=== PATIENT | female | born 1945 | race Caucasian/White ===

== ENCOUNTER → 2017-05-25 | Outpatient (CLI) | payer MEDICARE, OTHER ==
[~2017-05-25] MED LIST: AMLO10 PO; ASPI325 PO; ATOR40TA PO; BENA20 PO; BENHYD1012 PO; CHOL10002 PO; CITA20 PO; CLON2 PO; CLOP75 PO; ESCI20 PO; FLUT44OIA; GABA100 PO; HYDACE5 PO; IRON PO; Invanz1 GM IV; LEVSOD75 PO; LEVSOD88 PO; NAPR500 PO; Norco 5-325 Ta1 EACH PO; OXYB5 PO; OXYC5 PO; Omeprazole20 M1 PO; RANI150 PO; TOLT2 PO
[2017-05-25 16:00] LABS: BASOPHILS ABSOLUTE AUTO 0.11 K/mm3 (0.00-0.23); BASOPHILS PERCENT AUTO 1 % (0-2); EOSINOPHILS PERCENT AUTO 5 % (0-6); Hematocrit 41.6 % (33.0-51.0); Hemoglobin 12.9 g/dL (11.5-16.0); IMMATURE GRAN ABSOLUTE AUTO 0.03 K/mm3 (0.00-0.10); IMMATURE GRAN PERCENT AUTO 0 % (0-1); LYMPHOCYTES ABSOLUTE AUTO 2.05 K/mm3 (0.84-5.20); LYMPHOCYTES PERCENT AUTO 24 % (21-46); MONOCYTES ABSOLUTE AUTO 0.39 K/mm3 (0.16-1.47); MONOCYTES PERCENT AUTO 5 % (4-13); Mean Corpuscular HGB 28.2 pg (26.0-34.0); Mean Corpuscular Volume 91 fL (80-100); Mean Platelet Volume 10.2 fL (9.1-12.4); NEUTROPHILS ABSOLUTE AUTO 5.43 K/mm3 (1.96-9.15); NEUTROPHILS PERCENT AUTO 65 % (41-73); Platelet Count 312 K/mm3 (150-400); RDW Coefficient Variation 13.9 % (11.7-14.2); RDW Standard Deviation 46.9 fL (35.1-46.3); Red Blood Cell Count 4.57 M/mm3 (3.80-5.20); White Blood Cell Count 8.41 K/mm3 (4.00-11.30)
[2017-05-25 16:18] LABS: Alanine Aminotransfer (ALT/SGP 25 U/L (12-78); Albumin, Blood 3.5 g/dL (3.4-5.0); Albumin/Globulin Ratio 0.7 (0.8-1.8); Alk Phos 124 U/L (50-136); Anion Gap 8 mmol/L (6-16); Aspartate Aminotrans (AST/SGOT 20 U/L (12-37); Bilirubin, Total 0.5 mg/dL (0.1-1.0); Blood Urea Nitrogen 11 mg/dL (8-24); Bun/Creatinine Ratio 12.2 (12.0-20.0); CO2, Blood 29 mmol/L (21-32); Calcium, Blood 8.5 mg/dL (8.5-10.1); Chloride, Blood 103 mmol/L (98-108); Free Thyroxine 0.64 ng/dL (0.70-1.60); Globulin, Blood 4.8 g/dL (2.2-4.0); Glomerular Filtration Rate >60 (60-); Glucose, Blood 119 mg/dL (70-99); Potassium, Blood 3.6 mmol/L (3.5-5.5); Sodium, Blood 140 mmol/L (136-145); Total Protein, Blood 8.3 g/dL (6.4-8.2)
[2017-05-25 16:21] LABS: Triiodothyronine, Free 2.61 pg/mL (2.18-3.98)
== END ==
LOC: OLS 14:43
PROVIDERS: Family Medicine
DX: E03.9 Hypothyroidism, unspecified (principal); F32.9 Major depressive disorder, single episode, unspecified; D50.8 Other iron deficiency anemias
CPT/HCPCS: 36415; 80053; 84439; 84443; 84481; 85025

== ENCOUNTER 2017-06-28 17:56 | Observation (INO) | payer MEDICARE, OTHER ==
[~2017-06-28] VITALS: Ht 162.6 cm; Wt 108.6 kg
[~2017-06-28 17:56] MED LIST changes: -ATOR40TA PO; -IRON PO; -RANI150 PO
[2017-06-28 20:40] LABS: BASOPHILS ABSOLUTE AUTO 0.12 K/mm3 (0.00-0.23); BASOPHILS PERCENT AUTO 2 % (0-2); EOSINOPHILS ABSOLUTE AUTO 0.47 K/mm3 (0.00-0.68); EOSINOPHILS PERCENT AUTO 6 % (0-6); Hemoglobin 13.1 g/dL (11.5-16.0); IMMATURE GRAN ABSOLUTE AUTO 0.02 K/mm3 (0.00-0.10); IMMATURE GRAN PERCENT AUTO 0 % (0-1); LYMPHOCYTES ABSOLUTE AUTO 2.07 K/mm3 (0.84-5.20); LYMPHOCYTES PERCENT AUTO 27 % (21-46); MONOCYTES ABSOLUTE AUTO 0.64 K/mm3 (0.16-1.47); MONOCYTES PERCENT AUTO 9 % (4-13); Mean Corpuscular HGB 28.5 pg (26.0-34.0); Mean Corpuscular HGB Conc 31.2 g/dL (31.5-36.5); Mean Corpuscular Volume 91 fL (80-100); Mean Platelet Volume 10.5 fL (9.1-12.4); NEUTROPHILS ABSOLUTE AUTO 4.25 K/mm3 (1.96-9.15); NEUTROPHILS PERCENT AUTO 56 % (41-73); Platelet Count 295 K/mm3 (150-400); RDW Coefficient Variation 14.9 % (11.7-14.2); White Blood Cell Count 7.57 K/mm3 (4.00-11.30)
[2017-06-28 20:57] LABS: Alanine Aminotransfer (ALT/SGP 26 U/L (12-78); Albumin, Blood 3.6 g/dL (3.4-5.0); Albumin/Globulin Ratio 0.7 (0.8-1.8); Alk Phos 124 U/L (50-136); Anion Gap 8 mmol/L (6-16); Aspartate Aminotrans (AST/SGOT 18 U/L (12-37); Bilirubin, Total 0.3 mg/dL (0.1-1.0); Blood Urea Nitrogen 12 mg/dL (8-24); Bun/Creatinine Ratio 14.9 (12.0-20.0); CO2, Blood 29 mmol/L (21-32); Calcium, Blood 8.6 mg/dL (8.5-10.1); Chloride, Blood 105 mmol/L (98-108); Creatinine, Blood 0.81 mg/dL (0.40-1.00); Glomerular Filtration Rate >60 (60-); Glucose, Blood 129 mg/dL (70-99); Potassium, Blood 3.5 mmol/L (3.5-5.5); Sodium, Blood 142 mmol/L (136-145); Total Protein, Blood 8.6 g/dL (6.4-8.2)
[2017-06-28] MEDS ORDERED: ATOR40TA PO (21:00)
[2017-06-28] MEDS ORDERED: RANI150 PO (21:05)
[2017-06-28] MEDS ORDERED: IRON PO (21:05)
[2017-06-28 23:16] LABS: Troponin I <0.015 ng/mL (0.000-0.040)
[2017-06-29 03:42] LABS: BASOPHILS PERCENT AUTO 1 % (0-2); EOSINOPHILS ABSOLUTE AUTO 0.48 K/mm3 (0.00-0.68); EOSINOPHILS PERCENT AUTO 6 % (0-6); Hematocrit 37.5 % (33.0-51.0); Hemoglobin 11.9 g/dL (11.5-16.0); IMMATURE GRAN ABSOLUTE AUTO 0.03 K/mm3 (0.00-0.10); IMMATURE GRAN PERCENT AUTO 0 % (0-1); LYMPHOCYTES ABSOLUTE AUTO 2.27 K/mm3 (0.84-5.20); LYMPHOCYTES PERCENT AUTO 29 % (21-46); MONOCYTES ABSOLUTE AUTO 0.63 K/mm3 (0.16-1.47); MONOCYTES PERCENT AUTO 8 % (4-13); Mean Corpuscular HGB Conc 31.7 g/dL (31.5-36.5); Mean Corpuscular Volume 91 fL (80-100); Mean Platelet Volume 10.1 fL (9.1-12.4); NEUTROPHILS ABSOLUTE AUTO 4.29 K/mm3 (1.96-9.15); NEUTROPHILS PERCENT AUTO 55 % (41-73); Platelet Count 259 K/mm3 (150-400); RDW Coefficient Variation 14.8 % (11.7-14.2); RDW Standard Deviation 49.6 fL (35.1-46.3); Red Blood Cell Count 4.11 M/mm3 (3.80-5.20)
[2017-06-29 03:59] LABS: Albumin, Blood 3.2 g/dL (3.4-5.0); Anion Gap 6 mmol/L (6-16); Blood Urea Nitrogen 9 mg/dL (8-24); CO2, Blood 30 mmol/L (21-32); Calcium, Blood 8.3 mg/dL (8.5-10.1); Chloride, Blood 105 mmol/L (98-108); Creatinine, Blood 0.82 mg/dL (0.40-1.00); Glomerular Filtration Rate >60 (60-); Glucose, Blood 145 mg/dL (70-99); Phosphorus, Blood 3.7 mg/dL (2.5-4.9); Potassium, Blood 3.4 mmol/L (3.5-5.5); Sodium, Blood 141 mmol/L (136-145)
[2017-06-29 04:02] LABS: CHOL/HDL RATIO 2.3; Cholesterol 94 mg/dL (50-200); HDL Cholesterol 41 mg/dL (>39); LDL/HDL RATIO 0.5; Low Density Lipoprotein Chol 21 mg/dL (0-110); Triglycerides 159 mg/dL (30-160); Troponin I <0.015 ng/mL (0.000-0.040); Very Low Density Lipoprot Chol 31 mg/dL (6-32)
== END 2017-06-29 15:37 | disposition home or self-care (01) ==
LOC: ER 17:56 → MEDS 17:57 → ENPENDDIS 06-29 13:00 → MEDS 06-29 15:37
PROVIDERS: Emergency Medicine; Family Medicine
DX: R55 Syncope and collapse (principal); I73.9 Peripheral vascular disease, unspecified; I65.21 Occlusion and stenosis of right carotid artery; E78.5 Hyperlipidemia, unspecified; K21.9 Gastro-esophageal reflux disease without esophagitis; I10 Essential (primary) hypertension; G47.30 Sleep apnea, unspecified; F17.210 Nicotine dependence, cigarettes, uncomplicated; Z96.643 Presence of artificial hip joint, bilateral; Z86.73 Personal history of transient ischemic attack (TIA), and cerebral infarction without residual deficits; Z98.890 Other specified postprocedural states; Z88.0 Allergy status to penicillin; Z91.040 Latex allergy status; Z79.82 Long term (current) use of aspirin; Z79.899 Other long term (current) drug therapy
CPT/HCPCS: 36415; 70450; 80053; 80061; 80069; 84484; 85025; 93005; 93010; 93306; 93880; 94660; 94762; 99285; G0378

== ENCOUNTER 2018-05-25 06:48 | Day surgery (SDC) | payer MEDICARE, OTHER ==
[~2018-05-25] VITALS: Ht 160 cm; Wt 111.2 kg
[~2018-05-25 06:48] MED LIST changes: +ATOR40TA PO; +IRON PO; +RANI150 PO
[2018-05-25] MEDS ORDERED: LEVSOD50 (07:16)
[2018-05-25] MEDS ORDERED: GRALISE1 EACH (07:16)
== END 2018-05-25 10:01 | disposition home or self-care (01) ==
LOC: ORSCSDS 06:48
PROVIDERS: Internal Medicine Gastroenterology
PROC: 0DBE8ZX Excision of Large Intestine, Via Natural or Artificial Opening Endoscopic, Diagnostic (ICD-10-PCS; principal; 2018-05-25 08:00)
DX: K62.5 Hemorrhage of anus and rectum (principal); R19.7 Diarrhea, unspecified; K63.89 Other specified diseases of intestine; K57.30 Diverticulosis of large intestine without perforation or abscess without bleeding; K64.8 Other hemorrhoids; I12.9 Hypertensive chronic kidney disease with stage 1 through stage 4 chronic kidney disease, or unspecified chronic kidney disease; E11.22 Type 2 diabetes mellitus with diabetic chronic kidney disease; N18.9 Chronic kidney disease, unspecified; Z79.899 Other long term (current) drug therapy; G47.33 Obstructive sleep apnea (adult) (pediatric); F17.210 Nicotine dependence, cigarettes, uncomplicated; E66.01 Morbid (severe) obesity due to excess calories; Z68.41 Body mass index [BMI] 40.0-44.9, adult
CPT/HCPCS: 88305; J0330; J1980; J2405; J7120

== ENCOUNTER 2018-07-10 14:30 | Inpatient (IN) | payer MEDICARE, OTHER ==
[~2018-07-10] VITALS: Ht 162.6 cm; Wt 109.1 kg
[~2018-07-10 14:30] MED LIST changes: +FERROUS SULFATE PO; +GRALISE1 EACH; +LEVSOD50 PO; +OMEPRAZOLE MAGN20 MG PO; +POTASSIUM GLUC500 MG PO; -RANI150 PO; +TYLENOL PM PO; +Zantac PO
[2018-07-11] MEDS ORDERED: GABA100 PO ×2 (06:29→06:30)
--- NOTE | 2018-07-11 07:38 | NUR ---
INTO SDS VIA W/C. History, Chart, Medications and Allergies reviewed before start of procedure.Patient confirms NPO status and agrees with scheduled surgery. Patient states colon prep results clear.
--- NOTE | 2018-07-11 08:51 | NUR ---
07/11/18 0851 [place] THOMPSON CATH INSERTED PER ANNABEL JOHSNON.
--- NOTE | 2018-07-11 15:48 | NUR ---
DRESSING TO ABDOMEN AND 4 SITES OF STERI STRIPS REMAINED THE SAME.
--- NOTE | 2018-07-11 18:32 | NUR ---
SUMMARY PT HAS BEEN SLEEPING INTERMITTENT SINCE ARRIVAL TO THE UNIT. PT WILL RESPOND TO STIMULATION, DENIES PAIN, PROVENA WOUND VAC IN PLACE, STERI STRIPS COVERED WITH TEGADERM DRSG'S. VSS. PT IS ON 3 L O2 VIA NC. PT WEARS A CPAP AT HOME, HER HOME CPAP IS AT THE BEDSIDE. RT HAS BEEN NOTIFIED. THOMPSON CATH IN PLACE, PATENT, OFF FLOOR, DRAINING CLEAR JULIEN URINE. PT'S GRANDDAUGHTER IS AT THE BEDSIDE AND WILL BE STAYING THE NIGHT. LR INFUSING @ 75 ML/HR PER EMAR. WMCT & REPORT TO TOMASZ JOHNSON.
[2018-07-12 06:03] LABS: BASOPHILS ABSOLUTE AUTO 0.01 K/mm3 (0.00-0.23); BASOPHILS PERCENT AUTO 0 % (0-2); EOSINOPHILS PERCENT AUTO 0 % (0-6); Hematocrit 33.2 % (33.0-51.0); Hemoglobin 10.4 g/dL (11.5-16.0); IMMATURE GRAN ABSOLUTE AUTO 0.05 K/mm3 (0.00-0.10); IMMATURE GRAN PERCENT AUTO 0 % (0-1); LYMPHOCYTES PERCENT AUTO 9 % (21-46); MONOCYTES PERCENT AUTO 7 % (4-13); Mean Corpuscular HGB 29.5 pg (26.0-34.0); Mean Corpuscular HGB Conc 31.3 g/dL (31.5-36.5); Mean Platelet Volume 10.1 fL (9.1-12.4); NEUTROPHILS PERCENT AUTO 84 % (41-73); Platelet Count 278 K/mm3 (150-400); RDW Coefficient Variation 14.3 % (11.7-14.2); RDW Standard Deviation 49.2 fL (35.1-46.3); Red Blood Cell Count 3.52 M/mm3 (3.80-5.20); White Blood Cell Count 12.46 K/mm3 (4.00-11.30)
[2018-07-12 06:04] LABS: Mean Corpuscular Volume 94 fL (80-100)
[2018-07-12 06:16] LABS: Bun/Creatinine Ratio 13.7 (12.0-20.0); Calcium, Blood 8.2 mg/dL (8.5-10.1); Creatinine, Blood 1.02 mg/dL (0.40-1.00); Potassium, Blood 3.9 mmol/L (3.5-5.5)
--- NOTE | 2018-07-12 07:41 | NUR ---
Patient gave this student verbal consent to treat on 07/11/2018.
--- NOTE | 2018-07-12 16:57 | NUR ---
SHIFT SUMMARY NO ACUTE CHANGES THIS SHIFT. VSS. PT MEDICATED WITH 2 PAIN PILLS PRN. PROVENA WOUND VAC TO MIDLINE ABD REMAINS CDI. LAP SITES TO ABD REMAIN CDI. PT MERLY CLEAR LIQ DIET. THOMPSON IN PLACE UNTIL TOMORROW MORNING PER DR. DAVE REQUEST. PT UP AMBULATING HALLWAY WITH 1 MINIMAL SBA. IVF INFUSING. PT USES CALL LIGHT APPROPRIATELY. FAMILY MEMBERS IN ROOM FOR SUPPORT.
[2018-07-13 05:05] LABS: BASOPHILS ABSOLUTE AUTO 0.07 K/mm3 (0.00-0.23); BASOPHILS PERCENT AUTO 1 % (0-2); EOSINOPHILS PERCENT AUTO 1 % (0-6); Hematocrit 31.3 % (33.0-51.0); Hemoglobin 9.6 g/dL (11.5-16.0); IMMATURE GRAN ABSOLUTE AUTO 0.05 K/mm3 (0.00-0.10); IMMATURE GRAN PERCENT AUTO 0 % (0-1); LYMPHOCYTES ABSOLUTE AUTO 2.47 K/mm3 (0.84-5.20); LYMPHOCYTES PERCENT AUTO 21 % (21-46); MONOCYTES ABSOLUTE AUTO 0.99 K/mm3 (0.16-1.47); MONOCYTES PERCENT AUTO 8 % (4-13); Mean Corpuscular HGB 30.2 pg (26.0-34.0); Mean Corpuscular HGB Conc 30.7 g/dL (31.5-36.5); Mean Platelet Volume 10.1 fL (9.1-12.4); NEUTROPHILS ABSOLUTE AUTO 8.29 K/mm3 (1.96-9.15); NEUTROPHILS PERCENT AUTO 69 % (41-73); Platelet Count 239 K/mm3 (150-400); RDW Coefficient Variation 14.2 % (11.7-14.2); RDW Standard Deviation 51.7 fL (35.1-46.3); Red Blood Cell Count 3.18 M/mm3 (3.80-5.20); White Blood Cell Count 11.97 K/mm3 (4.00-11.30)
[2018-07-13 05:13] LABS: Mean Corpuscular Volume 98 fL (80-100)
[2018-07-13 05:30] LABS: Anion Gap 6 mmol/L (6-16); Blood Urea Nitrogen 15 mg/dL (8-24); CO2, Blood 29 mmol/L (21-32); Chloride, Blood 105 mmol/L (98-108); Creatinine, Blood 0.94 mg/dL (0.40-1.00); Glomerular Filtration Rate >60 (60-); Glucose, Blood 99 mg/dL (70-99); Potassium, Blood 3.8 mmol/L (3.5-5.5); Sodium, Blood 140 mmol/L (136-145)
--- NOTE | 2018-07-13 06:06 | NUR ---
POD 2 S/P SIGMOID RESECTION. PT VSS T/O NIGHT; PT NEEDIGN O2NC TO KEEP SATS >90%. DRESSINGS CDI. PAIN MGD PER EMAR W/REP RELIEF. PT MELRY CLEAR LIQ, BT PRESENT, NO FLATUS YET. PT SLEPT IN CHAIR T/O NIGHT, CPAP ON. I/S USE AND TCDB REINFORCED W/ROUNDING. PLAN TO D/C DONNA CATH THIS AM. PT USING CALL LIGHT FOR ASSISTANCE, WILL CONT TO MONITOR UNTIL REP GIVEN TO ONCOMING RN.
--- NOTE | 2018-07-13 08:00 | NUR ---
DR DAVE BY TO SEE PT EARLIER PT STILL HAS NOT PASSED FLATUS NO NAUSEA FEELS GAS OCC PAIN 5-10/09 NO VOID YET INSTRUCTED PT TO CALL FOR ASSIST WHEN SHE FEELS THE URGE TO GO IF UNABLE TO GO DISCUSSED BLADDER SCAN AND IN/OUT CATH IF PT PASSES FLATUS WILL NOTIFY DR DAVE
--- NOTE | 2018-07-13 12:05 | NUR ---
PT SITTING UP IN CHAIR EATING LUNCH NO FLATUS FAMILY AT BEDSIDE PAIN MEDS GIVEN
--- NOTE | 2018-07-13 16:04 | NUR ---
pt reported passing gas earlier message left with dr tomlinson office re adv pt diet
[2018-07-14 05:03] LABS: BASOPHILS ABSOLUTE AUTO 0.11 K/mm3 (0.00-0.23); BASOPHILS PERCENT AUTO 1 % (0-2); EOSINOPHILS ABSOLUTE AUTO 0.38 K/mm3 (0.00-0.68); EOSINOPHILS PERCENT AUTO 4 % (0-6); Hematocrit 30.8 % (33.0-51.0); Hemoglobin 9.4 g/dL (11.5-16.0); IMMATURE GRAN ABSOLUTE AUTO 0.06 K/mm3 (0.00-0.10); IMMATURE GRAN PERCENT AUTO 1 % (0-1); LYMPHOCYTES ABSOLUTE AUTO 2.23 K/mm3 (0.84-5.20); LYMPHOCYTES PERCENT AUTO 21 % (21-46); MONOCYTES ABSOLUTE AUTO 0.91 K/mm3 (0.16-1.47); MONOCYTES PERCENT AUTO 9 % (4-13); Mean Corpuscular HGB 29.7 pg (26.0-34.0); Mean Corpuscular HGB Conc 30.5 g/dL (31.5-36.5); Mean Corpuscular Volume 97 fL (80-100); Mean Platelet Volume 10.3 fL (9.1-12.4); NEUTROPHILS ABSOLUTE AUTO 6.88 K/mm3 (1.96-9.15); NEUTROPHILS PERCENT AUTO 65 % (41-73); Platelet Count 224 K/mm3 (150-400); RDW Coefficient Variation 14.2 % (11.7-14.2); RDW Standard Deviation 50.4 fL (35.1-46.3); Red Blood Cell Count 3.17 M/mm3 (3.80-5.20); White Blood Cell Count 10.57 K/mm3 (4.00-11.30)
[2018-07-14 05:27] LABS: Anion Gap 8 mmol/L (6-16); Blood Urea Nitrogen 15 mg/dL (8-24); Bun/Creatinine Ratio 15.7 (12.0-20.0); CO2, Blood 27 mmol/L (21-32); Calcium, Blood 8.2 mg/dL (8.5-10.1); Chloride, Blood 105 mmol/L (98-108); Creatinine, Blood 0.96 mg/dL (0.40-1.00); Glomerular Filtration Rate >60 (60-); Potassium, Blood 3.6 mmol/L (3.5-5.5); Sodium, Blood 140 mmol/L (136-145)
[2018-07-14 05:36] LABS: Glucose, Blood 112 mg/dL (70-99)
--- NOTE | 2018-07-14 05:55 | NUR ---
POD 3 S/P RESECTION. PT VSS T/O NIGHT. PT DID REQ 4-5L NC TO KEEP SATS >90%. PT USING NC WHILE AWAKE NAD BIPAP WHILE ASLEEP. DRESSINGS CDI. PAIN GMGD W/PO PAIN MEDS W/REP RELIEF. PT MERLY REG PO, IS PASSING FLATUS, NO BM YET. PT VOIDING URINE W/O DIFFICULTY. PO FLUIDS ENC. PT AMB W/SBA. TCDB ADN I/S USE REINFORCED. PT USING CALL LIGHT FOR ASSISTANCE, WILL CONT TO MONITOR UNTIL REP GIVEN TO ONCOMING RN.
--- NOTE | 2018-07-14 16:56 | NUR ---
SHIFT SUMMARY NO ACUTE CHANGES THIS SHIFT. VSS. PT MEDICATED FOR PAIN X1 WITH 2 NORCO. PROVENA WOUND VAC IN PLACE. X3 LAP SITES WITH STERI STRIPS ARE CDI. PT UP WITH SBA TO RESTROOM. VOIDING. IV SL. PASSING GAS. MERLY REG PO INTAKE. AMBULATING HALLWAY. PLAN IS TO DC TOMORROW.
[2018-07-15 04:32] LABS: BASOPHILS ABSOLUTE AUTO 0.09 K/mm3 (0.00-0.23); BASOPHILS PERCENT AUTO 1 % (0-2); EOSINOPHILS ABSOLUTE AUTO 0.44 K/mm3 (0.00-0.68); EOSINOPHILS PERCENT AUTO 5 % (0-6); Hematocrit 31.8 % (33.0-51.0); Hemoglobin 9.7 g/dL (11.5-16.0); IMMATURE GRAN ABSOLUTE AUTO 0.06 K/mm3 (0.00-0.10); IMMATURE GRAN PERCENT AUTO 1 % (0-1); LYMPHOCYTES ABSOLUTE AUTO 1.96 K/mm3 (0.84-5.20); LYMPHOCYTES PERCENT AUTO 22 % (21-46); MONOCYTES ABSOLUTE AUTO 0.69 K/mm3 (0.16-1.47); MONOCYTES PERCENT AUTO 8 % (4-13); Mean Corpuscular HGB 29.5 pg (26.0-34.0); Mean Corpuscular HGB Conc 30.5 g/dL (31.5-36.5); Mean Corpuscular Volume 97 fL (80-100); Mean Platelet Volume 10.4 fL (9.1-12.4); NEUTROPHILS ABSOLUTE AUTO 5.62 K/mm3 (1.96-9.15); NEUTROPHILS PERCENT AUTO 63 % (41-73); Platelet Count 263 K/mm3 (150-400); RDW Coefficient Variation 13.8 % (11.7-14.2); RDW Standard Deviation 49.3 fL (35.1-46.3); Red Blood Cell Count 3.29 M/mm3 (3.80-5.20); White Blood Cell Count 8.86 K/mm3 (4.00-11.30)
--- NOTE | 2018-07-15 04:53 | NUR ---
SUMMARY: PT IS POD4 CADE-COLECTOMY. NO ACUTE CHANGE. PT A/O, WHILE AWAKE DESATING TO 88%, I.S. ENCOURAGED. 1L NC APPLIED TO KEEP OVER 90% SPO2. OTHERWISE VSS. PT WORE CPAP FOR SLEEP. SURGICAL SITES WNL, PT HAS DENIED NEED FOR PAIN MEDS. TOLERATING REGULAR DIET, POSITIVE FOR FLATUS, NO REPORT OF BM. PT UP WITH MINIMAL ASSIST. NO SAFETY CONCERNS AT THIS TIME.
[2018-07-15] MEDS ORDERED: HYDR1TAB94 PO (12:06)
--- NOTE | 2018-07-15 15:09 | NUR ---
DISCHARGE: DC TO HOME AT THIS TIME WITH SPOUSE. IVS DC'D WNL. SCRIPT GIVEN. VERBAL UNDERSTANDING OF INSTRUCTIONS, FOLLOW UP, PROBLEMS TO REPORT AND MEDICATIONS. PT LEFT VIA WHEELCHAIR TO CAR WITH BELONGINGS.
== END 2018-07-15 13:10 | disposition home or self-care (01) | DRG 330 ==
LOC: SURS 07-11 05:55 → PRE IP 07-11 07:30 → SURS 07-11 16:05
PROVIDERS: ADMIT Surgery
PROC: 0DTN0ZZ Resection of Sigmoid Colon, Open Approach (ICD-10-PCS; principal; 2018-07-11 07:30)
PROC: 0DTJ0ZZ Resection of Appendix, Open Approach (ICD-10-PCS; 2018-07-11 07:30)
DX: D12.5 Benign neoplasm of sigmoid colon (principal); K57.32 Diverticulitis of large intestine without perforation or abscess without bleeding; Z68.41 Body mass index [BMI] 40.0-44.9, adult; F17.210 Nicotine dependence, cigarettes, uncomplicated; I10 Essential (primary) hypertension; E03.9 Hypothyroidism, unspecified; G47.30 Sleep apnea, unspecified; E66.9 Obesity, unspecified
CPT/HCPCS: 36415; 80048; 85025; 86850; 86900; 86901; 88304; 88307; 94762; J1100; J1650; J2185; J2250; J2405; J2710; J3010; J7120

== ENCOUNTER → 2019-07-30 | Outpatient (CLI) | payer MEDICARE, OTHER ==
[~2019-07-30] MED LIST changes: +HYDR1TAB94 PO
== END | disposition home or self-care (01) ==
LOC: LAB EV 14:30 → LAB SHORT 14:30
DX: L03.211 Cellulitis of face (principal)
CPT/HCPCS: 87070; 87205

== ENCOUNTER → 2020-04-10 | Outpatient (CLI) | payer MEDICARE, OTHER ==
[2020-04-11 16:11] LABS: ADENOVIRUS F 40/41 Not Detected (Not Detected); ASTROVIRUS Not Detected (Not Detected); C DIFFICILE TOXIN A/B Not Detected (Not Detected); CAMPYLOBACTER Not Detected (Not Detected); CRYPTOSPORIDIUM Not Detected (Not Detected); CYCLOSPORA CAYETANENSIS Not Detected (Not Detected); ENTAMOEBA HISTOLYTICA Not Detected (Not Detected); ENTEROAGGREGATIVE E COLI Not Detected (Not Detected); ENTEROPATHOGENIC E COLI Not Detected (Not Detected); ENTEROTOXIGENIC E COLI Not Detected (Not Detected); GIARDIA LAMBLIA Not Detected (Not Detected); NOROVIRUS GI/GII Not Detected (Not Detected); PLESIOMONAS SHIGELLOIDES Not Detected (Not Detected); ROTAVIRUS A Not Detected (Not Detected); SALMONELLA Not Detected (Not Detected); SAPOVIRUS Not Detected (Not Detected); SHIGA-TOXIN-PRODUCING E COLI Not Detected (Not Detected); SHIGELLA/ENTEROINVASIVE E COLI Not Detected (Not Detected); VIBRIO Not Detected (Not Detected); VIBRIO CHOLERAE Not Detected (Not Detected); YERSINIA ENTEROCOLITICA Not Detected (Not Detected)
== END | disposition home or self-care (01) ==
LOC: LAB SHORT 10:30 → LAB 10:30
PROVIDERS: Nurse Practitioner Family
DX: R19.7 Diarrhea, unspecified (principal); R11.10 Vomiting, unspecified
CPT/HCPCS: 0097U

== ENCOUNTER → 2020-07-25 | Outpatient (CLI) | payer MEDICARE, OTHER ==
[~2020-07-25] MED LIST changes: -ASPI325 PO; +Aspir 8181 MG PO; +CEPH500 PO; +CIPR500 PO; +CITALOPRAM HBR40 M1 PO; +EUTHYROX125 MCG PO; +FURO20 PO; +GUAI600T33 PO; +HYDCHL12.5 PO; +LEVSOD112 PO; -LEVSOD50 PO; +LOSARTAN POTAS100 MG PO; +NICO2 PO; +Oxybutynin Chlo10 MG PO; +POTA10T PO
[2020-07-25 19:07] LABS: Appearance, Urine Cloudy (Clear); Bilirubin, Urine Neg (Neg); Blood, Urine 5+ (Neg); Color, Urine Yellow (P-Yellow); Glucose Qualitative, Urine Neg (Neg); Ketones, Urine Neg (Neg); Leukocyte Esterase, Urine 3+ (Neg); Nitrite, Urine Pos (Neg); Protein, Urine 3+ (Neg); Specific Gravity, Urine 1.015 (1.003-1.022); Urobilinogen, Urine NORM (Normal)
[2020-07-25 19:14] LABS: White Blood Cells, Urine TNTC /hpf (0-5)
[2020-07-25 19:15] LABS: Bacteria Many /hpf; Red Blood Cells, Urine 25-50 /hpf (0-2); Squamous Epithelial Cells Few /hpf (Few); Transitional Epithelial Cells Rare /hpf (0-Rare)
== END | disposition home or self-care (01) ==
LOC: LAB SHORT 16:00 → LAB 16:00
PROVIDERS: Nurse Practitioner Family
DX: R30.0 Dysuria (principal)
CPT/HCPCS: 81001; 87077; 87086; 87186

== ENCOUNTER → 2021-08-19 | Outpatient (CLI) | payer MEDICARE, OTHER ==
[2021-08-24 14:25] LABS: C DIFFICILE DNA NEGATIVE (Negative)
== END | disposition home or self-care (01) ==
LOC: LAB SHORT 13:00
PROVIDERS: Nurse Practitioner Family
DX: R19.7 Diarrhea, unspecified (principal)
CPT/HCPCS: 87493

== ENCOUNTER 2022-07-16 12:41 | Day surgery (SDC) | payer MEDICARE, OTHER ==
[~2022-07-16] VITALS: Ht 162.6 cm; Wt 108.4 kg
[2022-07-16] MEDS ORDERED: IRBE75 (13:35)
--- NOTE | 2022-07-16 15:23 | NUR ---
07/16/22 1523 ALONA HALE EXAM ABORTED D/T POOR PREP.END NOTE ORSC.RDS
== END 2022-07-16 15:32 | disposition home or self-care (01) ==
LOC: ORSCSDS 12:41
PROVIDERS: Internal Medicine Gastroenterology
PROC: 0DJD8ZZ Inspection of Lower Intestinal Tract, Via Natural or Artificial Opening Endoscopic (ICD-10-PCS; principal; 2022-07-16 14:00)
DX: R19.5 Other fecal abnormalities (principal); Z86.010 Personal history of colon polyps; I10 Essential (primary) hypertension; Z87.891 Personal history of nicotine dependence; Z79.899 Other long term (current) drug therapy; E11.9 Type 2 diabetes mellitus without complications; Z86.73 Personal history of transient ischemic attack (TIA), and cerebral infarction without residual deficits; E66.01 Morbid (severe) obesity due to excess calories; Z68.41 Body mass index [BMI] 40.0-44.9, adult
CPT/HCPCS: 82947; J0330; J0461; J2001; J2405; J2704; J7120; Q9968

== ENCOUNTER 2022-09-09 15:31 | Emergency (ER) | payer MEDICARE, OTHER ==
[~2022-09-09] VITALS: Ht 162.6 cm; Wt 104.3 kg
[~2022-09-09 15:31] MED LIST changes: +IRBE75
[2022-09-09 16:32] LABS: BASOPHILS ABSOLUTE AUTO 0.09 K/mm3 (0.00-0.23); BASOPHILS PERCENT AUTO 1 % (0-2); EOSINOPHILS ABSOLUTE AUTO 0.38 K/mm3 (0.00-0.68); EOSINOPHILS PERCENT AUTO 4 % (0-6); Hematocrit 40.8 % (33.0-51.0); Hemoglobin 13.6 g/dL (11.5-16.0); IMMATURE GRAN ABSOLUTE AUTO 0.03 K/mm3 (0.00-0.10); IMMATURE GRAN PERCENT AUTO 0 % (0-1); LYMPHOCYTES ABSOLUTE AUTO 1.71 K/mm3 (0.84-5.20); LYMPHOCYTES PERCENT AUTO 20 % (21-46); MONOCYTES ABSOLUTE AUTO 0.57 K/mm3 (0.16-1.47); MONOCYTES PERCENT AUTO 7 % (4-13); Mean Corpuscular HGB 30.5 pg (26.0-34.0); Mean Corpuscular HGB Conc 33.3 g/dL (31.5-36.5); Mean Corpuscular Volume 92 fL (80-100); Mean Platelet Volume 10.3 fL (9.1-12.4); NEUTROPHILS PERCENT AUTO 68 % (41-73); Platelet Count 276 K/mm3 (150-400); RDW Standard Deviation 47.2 fL (35.1-46.3); Red Blood Cell Count 4.46 M/mm3 (3.80-5.20); White Blood Cell Count 8.58 K/mm3 (4.00-11.30)
[2022-09-09 17:08] LABS: Albumin, Blood 3.8 g/dL (3.4-5.0); Albumin/Globulin Ratio 0.8 (0.8-1.8); Bilirubin, Total 0.8 mg/dL (0.1-1.0); Bun/Creatinine Ratio 23.6 (12.0-20.0); Calcium, Blood 9.6 mg/dL (8.5-10.1); Creatinine, Blood 1.44 mg/dL (0.40-1.00); Globulin, Blood 4.5 g/dL (2.2-4.0); Potassium, Blood 3.1 mmol/L (3.5-5.5); Total Protein, Blood 8.3 g/dL (6.4-8.2)
[2022-09-09] MEDS ORDERED: ASPI325 PO (19:21)
[2022-09-09] MEDS ORDERED: HYDCHL12.5 PO (19:22)
[2022-09-09 21:00] VITALS: BP 145/61
[2022-09-09] MEDS ORDERED: LOPE2C PO (21:06)
[2022-09-09] MEDS ORDERED: POTA10T PO (21:06)
[2022-09-09] MEDS ORDERED: PROBIOTIC1 EA13 PO (21:06)
== END 2022-09-09 21:37 | disposition home or self-care (01) ==
LOC: ER 15:31
PROVIDERS: Physician Assistant
DX: R19.7 Diarrhea, unspecified (principal); E87.6 Hypokalemia; Z88.0 Allergy status to penicillin; Z91.040 Latex allergy status; Z79.899 Other long term (current) drug therapy; Z79.82 Long term (current) use of aspirin; G47.30 Sleep apnea, unspecified; I10 Essential (primary) hypertension; F17.200 Nicotine dependence, unspecified, uncomplicated
CPT/HCPCS: 80053; 83690; 85025; 96360; 99284-25; A9270; J7030

== ENCOUNTER → 2022-11-08 | Outpatient (CLI) | payer MEDICARE, OTHER ==
[~2022-11-08] MED LIST changes: +ASPI325 PO; +LOPE2C PO; +PROBIOTIC1 EA13 PO
[2022-11-08 16:20] LABS: BASOPHILS ABSOLUTE AUTO 0.08 K/mm3 (0.00-0.23); BASOPHILS PERCENT AUTO 1 % (0-2); EOSINOPHILS ABSOLUTE AUTO 0.55 K/mm3 (0.00-0.68); EOSINOPHILS PERCENT AUTO 8 % (0-6); Hematocrit 37.8 % (33.0-51.0); Hemoglobin 12.8 g/dL (11.5-16.0); IMMATURE GRAN ABSOLUTE AUTO 0.04 K/mm3 (0.00-0.10); IMMATURE GRAN PERCENT AUTO 1 % (0-1); LYMPHOCYTES ABSOLUTE AUTO 1.57 K/mm3 (0.84-5.20); LYMPHOCYTES PERCENT AUTO 22 % (21-46); MONOCYTES ABSOLUTE AUTO 0.45 K/mm3 (0.16-1.47); MONOCYTES PERCENT AUTO 6 % (4-13); Mean Corpuscular HGB 31.2 pg (26.0-34.0); Mean Corpuscular HGB Conc 33.9 g/dL (31.5-36.5); Mean Corpuscular Volume 92 fL (80-100); Mean Platelet Volume 9.6 fL (9.1-12.4); NEUTROPHILS ABSOLUTE AUTO 4.34 K/mm3 (1.96-9.15); NEUTROPHILS PERCENT AUTO 62 % (41-73); Platelet Count 292 K/mm3 (150-400); RDW Coefficient Variation 13.6 % (11.7-14.2); White Blood Cell Count 7.03 K/mm3 (4.00-11.30)
[2022-11-08 17:44] LABS: Albumin, Blood 3.8 g/dL (3.4-5.0); Albumin/Globulin Ratio 0.9 (0.8-1.8); Bilirubin, Direct 0.1 mg/dL (0.0-0.3); Bilirubin, Indirect 0.5 mg/dL (0.1-0.7); Bilirubin, Total 0.6 mg/dL (0.1-1.0); Bun/Creatinine Ratio 17.2 (12.0-20.0); Calcium, Blood 9.2 mg/dL (8.5-10.1); Creatinine, Blood 1.28 mg/dL (0.40-1.00); Globulin, Blood 4.2 g/dL (2.2-4.0); Potassium, Blood 3.3 mmol/L (3.5-5.5)
== END ==
LOC: LAB SHORT 16:15 → LAB 16:15
PROVIDERS: Family Medicine
DX: R07.89 Other chest pain (principal); R10.11 Right upper quadrant pain
CPT/HCPCS: 80053; 82248; 83690; 84484; 85025; 85379

== ENCOUNTER 2022-12-20 12:00 | Emergency (ER) | payer MEDICARE, OTHER ==
[~2022-12-20] VITALS: Ht 172.7 cm; Wt 129.3 kg
[~2022-12-20 12:00] MED LIST changes: +OMEP20ER PO; -OMEPRAZOLE MAGN20 MG PO
[2022-12-20 12:42] LABS: BASOPHILS ABSOLUTE AUTO 0.08 K/mm3 (0.00-0.23); BASOPHILS PERCENT AUTO 1 % (0-2); EOSINOPHILS ABSOLUTE AUTO 0.97 K/mm3 (0.00-0.68); EOSINOPHILS PERCENT AUTO 12 % (0-6); Hematocrit 38.6 % (33.0-51.0); IMMATURE GRAN ABSOLUTE AUTO 0.03 K/mm3 (0.00-0.10); IMMATURE GRAN PERCENT AUTO 0 % (0-1); LYMPHOCYTES ABSOLUTE AUTO 1.91 K/mm3 (0.84-5.20); LYMPHOCYTES PERCENT AUTO 23 % (21-46); MONOCYTES PERCENT AUTO 6 % (4-13); Mean Corpuscular HGB 30.6 pg (26.0-34.0); Mean Corpuscular HGB Conc 33.7 g/dL (31.5-36.5); Mean Corpuscular Volume 91 fL (80-100); Mean Platelet Volume 10.3 fL (9.1-12.4); NEUTROPHILS ABSOLUTE AUTO 4.75 K/mm3 (1.96-9.15); NEUTROPHILS PERCENT AUTO 58 % (41-73); Platelet Count 292 K/mm3 (150-400); RDW Coefficient Variation 13.2 % (11.7-14.2); RDW Standard Deviation 44.5 fL (35.1-46.3); Red Blood Cell Count 4.25 M/mm3 (3.80-5.20); White Blood Cell Count 8.24 K/mm3 (4.00-11.30)
[2022-12-20 12:53] LABS: Albumin, Blood 3.6 g/dL (3.4-5.0); Albumin/Globulin Ratio 0.9 (0.8-1.8); Bilirubin, Total 0.5 mg/dL (0.1-1.0); Bun/Creatinine Ratio 18.2 (12.0-20.0); Calcium, Blood 8.9 mg/dL (8.5-10.1); Creatinine, Blood 1.48 mg/dL (0.40-1.00); Globulin, Blood 4.1 g/dL (2.2-4.0); Potassium, Blood 3.5 mmol/L (3.5-5.5); Total Protein, Blood 7.7 g/dL (6.4-8.2)
[2022-12-20 13:03] LABS: Cholesterol 130 mg/dL (50-200); Triglycerides 192 mg/dL (30-160)
[2022-12-20] MEDS ORDERED: CLOP75 PO (14:21)
[2022-12-20 14:38] VITALS: BP 131/67
== END 2022-12-20 14:52 | disposition home or self-care (01) ==
LOC: ER 12:00
PROVIDERS: Emergency Medicine
DX: G45.9 Transient cerebral ischemic attack, unspecified (principal); R29.810 Facial weakness; E11.22 Type 2 diabetes mellitus with diabetic chronic kidney disease; I13.0 Hypertensive heart and chronic kidney disease with heart failure and stage 1 through stage 4 chronic kidney disease, or unspecified chronic kidney disease; N18.1 Chronic kidney disease, stage 1; G47.30 Sleep apnea, unspecified; I50.32 Chronic diastolic (congestive) heart failure; E78.5 Hyperlipidemia, unspecified; E03.9 Hypothyroidism, unspecified
CPT/HCPCS: 70450; 80053; 82465; 84478; 85025; 93005; 93010; 93880; 99285-25; A9270

== ENCOUNTER 2022-12-26 18:04 | Inpatient (IN) | payer MEDICARE, OTHER ==
[~2022-12-26] VITALS: Ht 162.6 cm; Wt 104.1 kg
[2022-12-26 18:53] LABS: BASOPHILS ABSOLUTE AUTO 0.04 K/mm3 (0.00-0.23); BASOPHILS PERCENT AUTO 0 % (0-2); EOSINOPHILS ABSOLUTE AUTO 1.57 K/mm3 (0.00-0.68); EOSINOPHILS PERCENT AUTO 11 % (0-6); Hematocrit 33.1 % (33.0-51.0); Hemoglobin 10.6 g/dL (11.5-16.0); IMMATURE GRAN ABSOLUTE AUTO 0.06 K/mm3 (0.00-0.10); IMMATURE GRAN PERCENT AUTO 0 % (0-1); LYMPHOCYTES ABSOLUTE AUTO 2.05 K/mm3 (0.84-5.20); LYMPHOCYTES PERCENT AUTO 15 % (21-46); MONOCYTES ABSOLUTE AUTO 0.99 K/mm3 (0.16-1.47); MONOCYTES PERCENT AUTO 7 % (4-13); Mean Corpuscular HGB 29.9 pg (26.0-34.0); Mean Corpuscular Volume 93 fL (80-100); Mean Platelet Volume 10.4 fL (9.1-12.4); NEUTROPHILS ABSOLUTE AUTO 9.33 K/mm3 (1.96-9.15); NEUTROPHILS PERCENT AUTO 66 % (41-73); Platelet Count 267 K/mm3 (150-400); RDW Coefficient Variation 13.3 % (11.7-14.2); Red Blood Cell Count 3.55 M/mm3 (3.80-5.20); White Blood Cell Count 14.04 K/mm3 (4.00-11.30)
[2022-12-26 19:05] LABS: Calcium, Ionized (POC) 1.11 mmol/L (1.10-1.46); Chloride (POC) 104 mmol/L (98-108); Creatinine (POC) 1.1 mg/dL (0.6-1.0); Glucose (ISTAT POC) 120 mg/dL (70-99); Hemoglobin (POC) 10.5 g/dL (12.0-16.0); Potassium (POC) 3.7 mmol/L (3.5-5.5); Sodium (POC) 141 mmol/L (135-148); Total CO2 (POC) 28 mmol/L (21-32)
[2022-12-26 19:16] LABS: Albumin, Blood 3.2 g/dL (3.4-5.0); Albumin/Globulin Ratio 0.9 (0.8-1.8); Bilirubin, Total 0.5 mg/dL (0.1-1.0); Calcium, Blood 8.4 mg/dL (8.5-10.1); Globulin, Blood 3.6 g/dL (2.2-4.0); Potassium, Blood 3.7 mmol/L (3.5-5.5); Total Protein, Blood 6.8 g/dL (6.4-8.2)
[2022-12-26 19:46] LABS: PCO2 Arterial 45.9 mmHg (35-45); PO2 Arterial 101 mmHg (80-100); pH Blood Arterial 7.35 (7.35-7.45)
[2022-12-26 19:56] LABS: Source, Urine Foley catheter
[2022-12-26 19:59] LABS: Bilirubin, Urine Neg (Neg); Blood, Urine Neg (Neg); Glucose Qualitative, Urine Neg (Neg); Ketones, Urine Neg (Neg); Leukocyte Esterase, Urine Neg (Neg); Nitrite, Urine Neg (Neg); Protein, Urine Neg (Neg); Urobilinogen, Urine NORM (Normal); pH, Urine 6.5 (5.0-8.0)
[2022-12-26 20:18] LABS: Appearance, Urine Clear (Clear); Color, Urine Yellow (P-Yellow)
[2022-12-26] MEDS ORDERED: ACET500 PO (20:35)
[2022-12-26] MEDS ORDERED: ATOR80 PO (20:36)
[2022-12-26] MEDS ORDERED: ERYT.5TO RIGHTEYE (20:37)
[2022-12-26] MEDS ORDERED: FERSU300 PO (20:38)
[2022-12-26] MEDS ORDERED: LOSA50 PO (20:39)
[2022-12-26] MEDS ORDERED: ALBU8HFA2 INH (20:40)
[2022-12-26] MEDS ORDERED: MELATONIN5 M1 PO (20:40)
[2022-12-26] MEDS ORDERED: VICTOZA 3-0.6 MG/0.2 SC (20:40)
[2022-12-26] MEDS ORDERED: Vitamin C100 MG (20:41)
[2022-12-26] MEDS ORDERED: VITAMIN D310 MC4 (20:42)
[2022-12-26 20:49] LABS: C-REACTIVE PROTEIN, EXT RANGE 1.55 mg/dL (0.000-0.300)
--- NOTE | 2022-12-26 23:30 | NUR ---
ASSUMPTION OF CARE: RECEIVED REPORT FROM CHEN JOHNSON. PT ARRIVED FROM ER VIA GURNEY. INTUBATED WITH SETTINGS AC/VC 16/400/5/40%. SPO2 >95%. ET TUBE 7.5, 23 AT THE LIP. SMALL AMOUNTS OF THIN, WHITE SECRETIONS SUCTIONED THROUGH TUBE. CALM AND COOPERATIVE WITH CARE. ABLE TO FOLLOW COMMANDS AND NOD HEAD YES AND NO TO QUESTIONS. MODERATELY SEDATED ON PROPOFOL AT 25 MCG/KG/HR. CONTINUOUS CARDIAC MONITORING IN PLACE, SINUS RHYTHM RATE 70'S. SBP 120'S-150'S. LARGE REDDENED AREA ON RIGHT SIDE OF NECK EXTENDING TO RIGHT CHEST. DRESSING IN PLACE, WITH NO NOTICEABLE DRAINAGE. THOMPSON IN PLACE FROM THE ER, WHICH IS PATENT AND DRAINING TO GRAVITY, PALE YELLOW URINE. THREE PERIPHERAL IV'S IN PLACE, 20 GAUGE LEFT UPPER SHOULDER, 20 GAUGE LEFT AC, 20 GAUGE RIGHT WRIST. ALL IV SITES CLEAN, DRY, INTACT AND INFUSING. PT C/O PAIN IN NECK, MEDICATED PER MAR WITH RELIEF. REPOSITIONED Q2 HOURS FOR COMFORT. SEE ADMISSION ASSESSMENT FOR FULL ASSESSMENT.
[2022-12-26 23:45] VITALS: BP 135/79
[2022-12-27] VITALS (18 sets, daily range): BP systolic 117–169; BP diastolic 60–96
[2022-12-27 01:26] LABS: BASOPHILS ABSOLUTE AUTO 0.02 K/mm3 (0.00-0.23); BASOPHILS PERCENT AUTO 0 % (0-2); EOSINOPHILS ABSOLUTE AUTO 0.16 K/mm3 (0.00-0.68); EOSINOPHILS PERCENT AUTO 1 % (0-6); Hematocrit 32.7 % (33.0-51.0); Hemoglobin 10.5 g/dL (11.5-16.0); IMMATURE GRAN ABSOLUTE AUTO 0.08 K/mm3 (0.00-0.10); IMMATURE GRAN PERCENT AUTO 1 % (0-1); LYMPHOCYTES ABSOLUTE AUTO 0.77 K/mm3 (0.84-5.20); LYMPHOCYTES PERCENT AUTO 6 % (21-46); MONOCYTES PERCENT AUTO 2 % (4-13); Mean Corpuscular HGB 29.9 pg (26.0-34.0); Mean Corpuscular HGB Conc 32.1 g/dL (31.5-36.5); Mean Corpuscular Volume 93 fL (80-100); Mean Platelet Volume 10.3 fL (9.1-12.4); NEUTROPHILS ABSOLUTE AUTO 11.78 K/mm3 (1.96-9.15); NEUTROPHILS PERCENT AUTO 90 % (41-73); Platelet Count 243 K/mm3 (150-400); RDW Coefficient Variation 13.3 % (11.7-14.2); RDW Standard Deviation 45.7 fL (35.1-46.3); Red Blood Cell Count 3.51 M/mm3 (3.80-5.20); White Blood Cell Count 13.11 K/mm3 (4.00-11.30)
[2022-12-27 01:45] LABS: Bun/Creatinine Ratio 14.3 (12.0-20.0); Calcium, Blood 8.1 mg/dL (8.5-10.1); Creatinine, Blood 0.98 mg/dL (0.40-1.00); Magnesium, Blood 1.7 mg/dL (1.6-2.4); Phosphorus, Blood 2.2 mg/dL (2.5-4.9); Potassium, Blood 3.8 mmol/L (3.5-5.5)
--- NOTE | 2022-12-27 03:20 | NUR ---
FAMILY CONTACTED REGARDING TRANSFER: CALL FROM [facility] REGARDING PT TRANSFER. BED AVAILABLE AT [facility] IN THE ICU ROOM NUMBER [id number]. CALLED YOUTH SPECIALIST AND HOSPITALIST TO CONFIRM THE TRANSFER. HOSPITALIST CALLED [facility] FOR REPORT WITH DR. BATES. CALL PLACED TO THE PT'S AND GRANDDAUGHTER TO UPDATE AND CONFIRM TRANSFER TO [facility]. PT AWAITING TRANSFER VIA HELICOPTER WITH REACH.
--- NOTE | 2022-12-27 05:32 | NUR ---
[address] [facility] VIA HELICOPTER LOADED ONTO [employer], MEDICATION SWITCHED TO TRANSPORT PUMPS, REPORT GIVEN TO FLIGHT CREW, FAMILY NOTIFIED OF TRANSFER. REPORT CALLED TO ELIZABETH CAVAZOS AT [facility]. PT IS STABLE AT TIME OF TRANSFER. A/O, MILDLY SEDATED WITH PROPOFOL, FENTANYL IVP GIVEN IMMEDIATELY PRIOR TO TRANSFER. LUNGS CTA/DIM BASES. VENT SETTINGS 14/400/5/40%. OGT IN PLACE, CLAMPED. TEMP PROBE THOMPSON DRAINING CLEAR YELLOW URINE. SKIN UNCHANGED. NO BREAKDOWN RELATED TO PRESSURE. PT HAS SWELLING TO RIGHT NECK (POD 3 S/P CAROTID) MARKED, NO INCREASE IN SIZE. CLEAN DRESSING APPLIED. NO DRAINAGE NOTED. PIV X3, ALL FLUSH WELL. PROPOFOL AND NS INFUSING AT TIME OF TRANSFER.
== END 2022-12-27 05:03 | disposition short-term general hospital (02) | DRG 315 ==
LOC: ER 18:04 → ICUE 22:51
PROVIDERS: Emergency Medicine; Physician Assistant; ADMIT Hospitalist
PROC: 5A1935Z Respiratory Ventilation, Less than 24 Consecutive Hours (ICD-10-PCS; 2022-12-26)
PROC: 0BH17EZ Insertion of Endotracheal Airway into Trachea, Via Natural or Artificial Opening (ICD-10-PCS; 2022-12-26)
PROC: 4A033R1 Measurement of Arterial Saturation, Peripheral, Percutaneous Approach (ICD-10-PCS; 2022-12-26)
PROC: 0DH67UZ Insertion of Feeding Device into Stomach, Via Natural or Artificial Opening (ICD-10-PCS; 2022-12-26)
PROC: 5A09357 Assistance with Respiratory Ventilation, Less than 24 Consecutive Hours, Continuous Positive Airway Pressure (ICD-10-PCS; principal; 2022-12-27)
DX: I97.89 Other postprocedural complications and disorders of the circulatory system, not elsewhere classified (principal); I13.0 Hypertensive heart and chronic kidney disease with heart failure and stage 1 through stage 4 chronic kidney disease, or unspecified chronic kidney disease; I50.32 Chronic diastolic (congestive) heart failure; T78.3XXA Angioneurotic edema, initial encounter; R22.1 Localized swelling, mass and lump, neck; G47.30 Sleep apnea, unspecified; F32.A Depression, unspecified; E11.22 Type 2 diabetes mellitus with diabetic chronic kidney disease; N18.1 Chronic kidney disease, stage 1; K44.9 Diaphragmatic hernia without obstruction or gangrene; J44.9 Chronic obstructive pulmonary disease, unspecified; E78.5 Hyperlipidemia, unspecified; E03.9 Hypothyroidism, unspecified; E11.51 Type 2 diabetes mellitus with diabetic peripheral angiopathy without gangrene; F17.210 Nicotine dependence, cigarettes, uncomplicated; I95.9 Hypotension, unspecified; D72.829 Elevated white blood cell count, unspecified; R13.10 Dysphagia, unspecified; J02.9 Acute pharyngitis, unspecified; E66.9 Obesity, unspecified; K14.8 Other diseases of tongue; Z68.37 Body mass index [BMI] 37.0-37.9, adult; Z79.01 Long term (current) use of anticoagulants; Z79.82 Long term (current) use of aspirin; Z79.02 Long term (current) use of antithrombotics/antiplatelets; Z79.4 Long term (current) use of insulin; Z79.890 Hormone replacement therapy; Z79.899 Other long term (current) drug therapy; Z98.62 Peripheral vascular angioplasty status; Z98.890 Other specified postprocedural states; Z90.49 Acquired absence of other specified parts of digestive tract; Z88.0 Allergy status to penicillin; Z91.040 Latex allergy status; Z86.73 Personal history of transient ischemic attack (TIA), and cerebral infarction without residual deficits; Y83.8 Other surgical procedures as the cause of abnormal reaction of the patient, or of later complication, without mention of misadventure at the time of the procedure
CPT/HCPCS: 31500; 36415; 36600; 51702; 70496; 70498; 71045; 80047; 80048; 80053; 81003; 82330; 82550; 82803; 83605; 83735; 84100; 85014; 85025; 86140; 86850; 86900; 86901; 87040; 93005; 93010; 94002; 94003; 96361-59; 96365-59; 96375-59; 96376-59; 99291-25; 99292; J0690; J1100; J1200; J2185; J2704; J2930; J3010; J3370; J7030; J7050; J7120; Q9967

== ENCOUNTER → 2023-04-13 | Outpatient (CLI) | payer MEDICARE, OTHER ==
[~2023-04-13] MED LIST changes: +ACET500 PO; +ALBU8HFA2 INH; +ATOR80 PO; +ERYT.5TO RIGHTEYE; +FERSU300 PO; +LOSA50 PO; +MELATONIN5 M1 PO; +VICTOZA 3-0.6 MG/0.2 SC; +VITAMIN D310 MC4; +Vitamin C100 MG
[2023-04-13 12:28] LABS: Source, Urine Voided
[2023-04-13 14:14] LABS: Appearance, Urine Cloudy (Clear); Bilirubin, Urine Neg (Neg); Blood, Urine 2+ (Neg); Color, Urine Yellow (P-Yellow); Glucose Qualitative, Urine Neg (Neg); Ketones, Urine Neg (Neg); Leukocyte Esterase, Urine 3+ (Neg); Nitrite, Urine Pos (Neg); Protein, Urine 2+ (Neg); Urobilinogen, Urine NORM (Normal)
[2023-04-13 14:26] LABS: Bacteria Many /hpf; Squamous Epithelial Cells Few /hpf (Few); White Blood Cells, Urine TNTC /hpf (0-5)
== END ==
LOC: LAB 08:00 → LAB SHORT 08:00
PROVIDERS: Nurse Practitioner Family
DX: N39.41 Urge incontinence (principal)
CPT/HCPCS: 81001; 87077; 87086; 87147; 87186

== ENCOUNTER 2024-07-13 14:44 | Inpatient (IN) | payer MEDICARE ==
[~2024-07-13] VITALS: Ht 160 cm; Wt 95.2 kg
[2024-07-13] MEDS ORDERED: LEVSOD150 PO (15:25)
[2024-07-13] MEDS ORDERED: PANT40 PO (15:26)
[2024-07-13] MEDS ORDERED: OXYB5 PO (15:26)
[2024-07-13] MEDS ORDERED: NS 1,000 ML IV SCH ×3 (15:50→18:55)
[2024-07-13 16:06] LABS: BASOPHILS ABSOLUTE AUTO 0.09 K/mm3 (0.00-0.23); BASOPHILS PERCENT AUTO 1 % (0-2); EOSINOPHILS ABSOLUTE AUTO 0.33 K/mm3 (0.00-0.68); EOSINOPHILS PERCENT AUTO 3 % (0-6); Hematocrit 33.1 % (33.0-51.0); Hemoglobin 10.3 g/dL (11.5-16.0); IMMATURE GRAN ABSOLUTE AUTO 0.04 K/mm3 (0.00-0.10); IMMATURE GRAN PERCENT AUTO 0 % (0-1); LYMPHOCYTES ABSOLUTE AUTO 1.18 K/mm3 (0.84-5.20); LYMPHOCYTES PERCENT AUTO 11 % (21-46); MONOCYTES ABSOLUTE AUTO 0.66 K/mm3 (0.16-1.47); MONOCYTES PERCENT AUTO 6 % (4-13); Mean Corpuscular HGB 25.6 pg (26.0-34.0); Mean Corpuscular HGB Conc 31.1 g/dL (31.5-36.5); Mean Corpuscular Volume 82 fL (80-100); Mean Platelet Volume 9.9 fL (9.1-12.4); NEUTROPHILS ABSOLUTE AUTO 8.14 K/mm3 (1.96-9.15); NEUTROPHILS PERCENT AUTO 78 % (41-73); Platelet Count 340 K/mm3 (150-400); RDW Coefficient Variation 16.1 % (11.7-14.2); RDW Standard Deviation 48.4 fL (35.1-46.3); Red Blood Cell Count 4.02 M/mm3 (3.80-5.20); White Blood Cell Count 10.44 K/mm3 (4.00-11.30)
[2024-07-13 16:31] LABS: Albumin, Blood 3.2 g/dL (3.4-5.0); Albumin/Globulin Ratio 0.8 (0.8-1.8); Bilirubin, Total 0.8 mg/dL (0.1-1.0); Bun/Creatinine Ratio 20.6 (12.0-20.0); Calcium, Blood 8.5 mg/dL (8.5-10.1); Creatinine, Blood 0.87 mg/dL (0.40-1.00); Potassium, Blood 4.3 mmol/L (3.5-5.5); Total Protein, Blood 7.2 g/dL (6.4-8.2)
[2024-07-13] MEDS ORDERED: HYDROmorphone HCl/Pf 1MG SYR IV ONE (17:50)
[2024-07-13] MEDS ORDERED: Ondansetron HCl 2 MG / ML 2ML Vial IV PRN (18:55)
[2024-07-13] MEDS ORDERED: FLU VACC TS2024-25(6MOS UP)/PF 45 MCG/0.5 ML SYRINGE IM SCH (18:55)
[2024-07-13] MEDS ORDERED: FentaNYL Citrate 50 MCG/ML 2 ML Injection IV PRN (18:55)
[2024-07-13 23:35] VITALS: BP 167/73
[2024-07-14] VITALS (22 sets, daily range): BP systolic 112–161; BP diastolic 53–88
[2024-07-14] MEDS ORDERED: OxyCODONE HCL 5 MG TAB PO PRN ×2 (00:25→07:30)
[2024-07-14 05:33] LABS: BASOPHILS ABSOLUTE AUTO 0.08 K/mm3 (0.00-0.23); BASOPHILS PERCENT AUTO 1 % (0-2); EOSINOPHILS ABSOLUTE AUTO 0.13 K/mm3 (0.00-0.68); EOSINOPHILS PERCENT AUTO 1 % (0-6); Hematocrit 31.2 % (33.0-51.0); Hemoglobin 9.3 g/dL (11.5-16.0); IMMATURE GRAN ABSOLUTE AUTO 0.04 K/mm3 (0.00-0.10); IMMATURE GRAN PERCENT AUTO 0 % (0-1); LYMPHOCYTES ABSOLUTE AUTO 1.58 K/mm3 (0.84-5.20); LYMPHOCYTES PERCENT AUTO 15 % (21-46); MONOCYTES ABSOLUTE AUTO 0.83 K/mm3 (0.16-1.47); MONOCYTES PERCENT AUTO 8 % (4-13); Mean Corpuscular HGB 24.3 pg (26.0-34.0); Mean Corpuscular HGB Conc 29.8 g/dL (31.5-36.5); Mean Corpuscular Volume 82 fL (80-100); Mean Platelet Volume 10.1 fL (9.1-12.4); NEUTROPHILS ABSOLUTE AUTO 7.81 K/mm3 (1.96-9.15); NEUTROPHILS PERCENT AUTO 75 % (41-73); Platelet Count 315 K/mm3 (150-400); RDW Standard Deviation 47.5 fL (35.1-46.3); Red Blood Cell Count 3.82 M/mm3 (3.80-5.20); White Blood Cell Count 10.47 K/mm3 (4.00-11.30)
[2024-07-14] MEDS ORDERED: Levothyroxine Sodium 0.15 MG Tab PO SCH (06:00)
[2024-07-14] MEDS ORDERED: Pantoprazole Sodium 40 MG Tab PO SCH (06:00)
[2024-07-14 06:04] LABS: Albumin, Blood 3.1 g/dL (3.4-5.0); Albumin/Globulin Ratio 0.8 (0.8-1.8); Bilirubin, Total 0.6 mg/dL (0.1-1.0); Bun/Creatinine Ratio 17.9 (12.0-20.0); Calcium, Blood 8.5 mg/dL (8.5-10.1); Creatinine, Blood 0.73 mg/dL (0.40-1.00); Globulin, Blood 3.8 g/dL (2.2-4.0); Potassium, Blood 3.8 mmol/L (3.5-5.5); Total Protein, Blood 6.9 g/dL (6.4-8.2)
[2024-07-14] MEDS ORDERED: FentaNYL Citrate 50 MCG/ML 2 ML Injection IV PRN (07:00)
[2024-07-14] MEDS ORDERED: Acetaminophen 500 MG Tab PO PRN (07:30)
[2024-07-14] MEDS ORDERED: Morphine Sulfate 4 MG/1 ML Injection IV PRN (07:30)
--- NOTE | 2024-07-14 07:43 | NUR ---
CONSULTATION NOTE: CALLED DR. CONI GOMEZ FOR CONSULT AND VERIFY c PLAN OF CARE. RECEIVED ORDERS TO HOLD ASPIRIN AND PLAVIX SCHEDULED DOSE THIS AM.
[2024-07-14] MEDS ORDERED: Furosemide 10 MG / ML 2ML Vial IV ONE ×3 (08:00→20:05)
[2024-07-14] MEDS ORDERED: Clopidogrel Bisulfate 75 MG Tab PO SCH (09:00)
[2024-07-14] MEDS ORDERED: AmLODIPine Besylate 5 MG Tab PO SCH (09:00)
[2024-07-14] MEDS ORDERED: Aspirin 325 MG Tab PO SCH (09:00)
[2024-07-14] MEDS ORDERED: Citalopram Hydrobromide 20 MG Tab PO SCH (09:00)
[2024-07-14] MEDS ORDERED: Losartan Potassium 50 MG Tab PO SCH (09:00)
[2024-07-14] MEDS ORDERED: oxyBUTYnin chloride 5 MG TAB PO SCH (09:00)
[2024-07-14] MEDS ORDERED: Lactated Ringer's 1,000 ML IV ONE (12:54)
[2024-07-14] MEDS ORDERED: Midazolam HCl 1MG / ML 2ML Vial ONE (13:04)
[2024-07-14] MEDS ORDERED: propofoL 20 ML IV ONE (13:05)
[2024-07-14] MEDS ORDERED: FentaNYL Citrate 50 MCG/ML 2 ML Injection ONE (13:05)
[2024-07-14] MEDS ORDERED: Rocuronium Bromide 10 MG/ML 5ML Injection IV ONE (13:06)
[2024-07-14] MEDS ORDERED: Ondansetron HCl 2 MG / ML 2ML Vial ONE ×2 (13:06→18:03)
[2024-07-14] MEDS ORDERED: Lidocaine HCl 2% Jelly 120MG/6ML SYR (20MG PER ML) ONE (13:06)
[2024-07-14] MEDS ORDERED: Dexamethasone Sod Phos 10 MG/ML 1ML VIAL ONE (13:06)
[2024-07-14] MEDS ORDERED: Tranexamic Acid 100 ML IV ONE ×2 (13:10→16:58)
[2024-07-14] MEDS ORDERED: CeFAZolin Sodium 2,000 MG in NS 100 ML IV PRN (13:10)
--- NOTE | 2024-07-14 13:14 | NUR ---
SHIFT/DISCHARGE SUMMARY: PATIENT A/OX4, PLEASANT AND COOPERATIVE c CARE. PATIENT REPORTS PAIN 5/10 TO R LEG, MEDICATED FOR PAIN PER EMAR c GOOD EFFECT. PATIENT HAS YEH TRACTION TO R LEG. PATIENT DENIES CP/PRESSURE, SOB, N/V AND DIZZINESS. PATIENT ON TELE, SR HR IN THE 80'S BPM c OCCASIONAL PAC. PATIENT CURRENTLY ON O2 2L NC, SATTING 90-94%. PATIENT NPO SINCE [place] FOR SURGERY THIS PM, INCONTINENT OF BLADDER, PUREWICK SYSTEM IN PLACED. VITAL SIGNS REVIEWED. DR. NEWBERRY (ORTHO) CAME THIS AM AND SPOKE TO PATIENT c PLAN OF CARE. PATIENT AGREED c THE PLAN FOR SURGERY TO R FEMORAL NECK FX. PATIENT LEFT THE ROOM AT 1251 VIA BED TO PRE-OP. PATIENT WILL BE TRANSFERRING TO SURGICAL UNIT RM 218 AFTER SURGERY. TR GIVEN TO ELIZABETH COLES AT SURGICAL UNIT. ALL PERSONAL BELONGINGS TRANSFERRED BY ROLLY JAFFE TO PATIENT RM [id number].
[2024-07-14] MEDS ORDERED: Bupivacaine HCl 0.25% 30 ML Injection ONE (13:18)
[2024-07-14] MEDS ORDERED: ePHEDrine Sulfate 50 MG/ML 1ML Injection ONE (13:55)
[2024-07-14] MEDS ORDERED: Phenylephrine HCl 100 MCG/ML-NS 10MLSYR (1MG/10ML) ONE (14:57)
[2024-07-14] MEDS ORDERED: HYDROmorphone HCl/Pf 1MG SYR ONE (14:57)
--- NOTE | 2024-07-14 20:00 | NUR ---
ARRIVAL PT NEW ARRIVAL FROM PACU. ARIVED ON A PATIENT BED, A/OX4, ON 4L VIA NC. RLE WRAPPED IN CHEO FROM HIP TO TOES, MARBELLA IN PLACE. COMPRESSED. NO DRAINAGE NOTED ON DRESSING. TOES COOL TO THE TOUCH W/ 3 SEC CAP REFILL. PT ABLE TO MOVE TOES ON COMMAND, REPORTS MINIMAL DISCOMFORT. VSS. PT ASKING FOR FOOD AND WATER AT THIS TIME.
[2024-07-14] MEDS ORDERED: Gabapentin 300 MG Cap PO SCH (21:00)
[2024-07-15 03:18] VITALS: BP 123/67
--- NOTE | 2024-07-15 04:16 | NUR ---
SHIFT SUMMARY POD1 ORIF RLE. DRESSING REMAINS C/D/I. SENSATION AND CIRCULATION REMAINS INTACT. CAP REFILL 3 SECONDS, PALPABLE PULSE. PT IS ABLE TO MOVE TOES ON COMMAND AND CAN ASSIST W/MOVING LEG IN BED. VSS. PT SLEPT ON AND OFF T/O THE NIGHT. MEDICATED FOR PAIN PER EMAR W/GOOD RESULTS, IV PAIN MEDICATION USED X1 FOR BREAKTHROUGH PAIN. PT TOLLERATING PO INTAKE W/O N/V. THOMPSON REMAINS IN PLACE, PATENT. LIGHT YELLOW URINE NOTED. NO ACUTE EVENTS NOTED T/O THE NIGHT. PLAN FOR PAIN MANAGEMENT AND AWAIT PT/OT ARRANGEMENTS.
[2024-07-15 05:52] LABS: BASOPHILS ABSOLUTE AUTO 0.02 K/mm3 (0.00-0.23); BASOPHILS PERCENT AUTO 0 % (0-2); EOSINOPHILS PERCENT AUTO 0 % (0-6); Hematocrit 26.2 % (33.0-51.0); Hemoglobin 8.1 g/dL (11.5-16.0); IMMATURE GRAN ABSOLUTE AUTO 0.05 K/mm3 (0.00-0.10); IMMATURE GRAN PERCENT AUTO 0 % (0-1); LYMPHOCYTES ABSOLUTE AUTO 0.82 K/mm3 (0.84-5.20); LYMPHOCYTES PERCENT AUTO 6 % (21-46); MONOCYTES ABSOLUTE AUTO 1.56 K/mm3 (0.16-1.47); MONOCYTES PERCENT AUTO 12 % (4-13); Mean Corpuscular HGB Conc 30.9 g/dL (31.5-36.5); Mean Corpuscular Volume 81 fL (80-100); Mean Platelet Volume 10.6 fL (9.1-12.4); NEUTROPHILS ABSOLUTE AUTO 10.72 K/mm3 (1.96-9.15); NEUTROPHILS PERCENT AUTO 81 % (41-73); Platelet Count 277 K/mm3 (150-400); RDW Coefficient Variation 16.4 % (11.7-14.2); RDW Standard Deviation 47.8 fL (35.1-46.3); Red Blood Cell Count 3.24 M/mm3 (3.80-5.20); White Blood Cell Count 13.17 K/mm3 (4.00-11.30)
[2024-07-15 06:14] LABS: Albumin, Blood 2.8 g/dL (3.4-5.0); Albumin/Globulin Ratio 0.8 (0.8-1.8); Bilirubin, Total 0.6 mg/dL (0.1-1.0); Bun/Creatinine Ratio 20.8 (12.0-20.0); Calcium, Blood 7.8 mg/dL (8.5-10.1); Creatinine, Blood 0.87 mg/dL (0.40-1.00); Globulin, Blood 3.7 g/dL (2.2-4.0); Magnesium, Blood 2.1 mg/dL (1.6-2.4); Phosphorus, Blood 3.6 mg/dL (2.5-4.9); Potassium, Blood 4.1 mmol/L (3.5-5.5); Total Protein, Blood 6.5 g/dL (6.4-8.2)
[2024-07-15 07:04] VITALS: BP 134/63
--- NOTE | 2024-07-15 09:14 | NUR ---
PT OK TO HAVE PLAVIX THIS AM PER DR. NEWBERRY
[2024-07-15] MEDS ORDERED: Enoxaparin 30 MG/0.3 ML SYR SC SCH (14:00)
--- NOTE | 2024-07-15 16:09 | NUR ---
PT HAVING SUDDEN SEVERE R FOOT PAIN THAT "FEELS LIKE A MUSCLE CRAMP", PT CRYING IN ROOM. REPOSITIONED FOOT AND GAVE MORPHINE PER EMAR, PT REPORTS RELIEF IN PAIN. CONSULTED W/ DR. STERLING WHO IS PUTTING IN ORDER FOR FLEXERIL.
[2024-07-15] MEDS ORDERED: Cyclobenzaprine HCl 10 MG Tab PO PRN (16:10)
[2024-07-15 16:24] VITALS: BP 109/95
--- NOTE | 2024-07-15 17:53 | NUR ---
SHIFT SUMMARY PT IS POD1 FOR R FEMUR ORIF. PT IS A/OX4, VERY PLEASANT AND COOPERATIVE, 1 ASST W/ REPOSITIONING IN BED. PT IS NWB TO R LEG. CAP REFILL IN R TOES 2 SECS, PT IS ABLE TO WIGGLE TOES AND FEEL TOES BUT REPORTS SOME NUMBNESS TO TOP OF R FOOT. DR. NEWBERRY NOTIFIED, OK TO LOOSEN CHEO WRAP, NO OTHER ORDERS RECIEVED. CHEO WRAP LOOSENED AND PT REPORTED RELIEF. FLEXERIL GIVEN PER EMAR FOR MUSCLE SPASMS W/ GOOD RESULTS. PAIN MANAGED W/ IV AND PO PAIN MEDS. PAS TO L CALF. PT WORKED W/ PT BUT DID NOT GET OOB. THOMPSON IN PLACE DRAINING YELLOW URINE. PT TOLERATING PO INTAKE. CURRENTLY RESTING PEACEFULLY IN ROOM W/ R LEG ELEVATED AND ICE TO R LEG/FOOT. CALL LIGHT IN REACH.
[2024-07-15 19:23] VITALS: BP 119/62
[2024-07-15 23:14] VITALS: BP 116/57
[2024-07-16] VITALS (11 sets, daily range): BP systolic 72–133; BP diastolic 41–66
--- NOTE | 2024-07-16 04:04 | NUR ---
SHIFT SUMMARY POD 2 S/P R FEMUR ORIF. MARBELLA TO RIGHT HIP CDI AND COMPRESSED. CHEO WRAP FROM RIGHT FOOT TO UPPER THIGH IN PLACE. PT DENIES N/T, ABLE TO WIGGLE FINGERS AND TOES. PAIN MANAGED WITH PO MEDICATION, ICE THERAPY, AND REPOSITIONING. PT MERLY PO INTAKE, DENIES N/V. ON 3L NC, CPAP WHILE SLEEPING. TELE IN PLACE, SINUS RHYTHM @ 61BPM PER ELIGIBILITY SPECIALIST. IV PATENT/SL. THOMPSON TO GRAVITY DRAIN, WILL REMOVE PER ORDERS. PLAN TO WORK WITH THERAPY TODAY. WILL GIVE REPORT TO ON COMING RN.
[2024-07-16 04:50] LABS: BASOPHILS ABSOLUTE AUTO 0.04 K/mm3 (0.00-0.23); BASOPHILS PERCENT AUTO 0 % (0-2); EOSINOPHILS ABSOLUTE AUTO 0.12 K/mm3 (0.00-0.68); EOSINOPHILS PERCENT AUTO 1 % (0-6); Hematocrit 23.2 % (33.0-51.0); IMMATURE GRAN ABSOLUTE AUTO 0.07 K/mm3 (0.00-0.10); IMMATURE GRAN PERCENT AUTO 1 % (0-1); LYMPHOCYTES ABSOLUTE AUTO 1.93 K/mm3 (0.84-5.20); LYMPHOCYTES PERCENT AUTO 17 % (21-46); MONOCYTES ABSOLUTE AUTO 1.58 K/mm3 (0.16-1.47); MONOCYTES PERCENT AUTO 14 % (4-13); Mean Corpuscular HGB 24.8 pg (26.0-34.0); Mean Corpuscular HGB Conc 30.2 g/dL (31.5-36.5); Mean Corpuscular Volume 82 fL (80-100); Mean Platelet Volume 10.1 fL (9.1-12.4); NEUTROPHILS ABSOLUTE AUTO 7.73 K/mm3 (1.96-9.15); NEUTROPHILS PERCENT AUTO 68 % (41-73); Platelet Count 232 K/mm3 (150-400); RDW Coefficient Variation 16.6 % (11.7-14.2); RDW Standard Deviation 49.6 fL (35.1-46.3); Red Blood Cell Count 2.82 M/mm3 (3.80-5.20); White Blood Cell Count 11.47 K/mm3 (4.00-11.30)
[2024-07-16 05:14] LABS: Albumin, Blood 2.5 g/dL (3.4-5.0); Albumin/Globulin Ratio 0.7 (0.8-1.8); Bilirubin, Total 0.7 mg/dL (0.1-1.0); Bun/Creatinine Ratio 23.4 (12.0-20.0); Calcium, Blood 8.1 mg/dL (8.5-10.1); Creatinine, Blood 0.94 mg/dL (0.40-1.00); Globulin, Blood 3.6 g/dL (2.2-4.0); Magnesium, Blood 2.6 mg/dL (1.6-2.4); Phosphorus, Blood 4.2 mg/dL (2.5-4.9); Potassium, Blood 3.8 mmol/L (3.5-5.5); Total Protein, Blood 6.1 g/dL (6.4-8.2)
[2024-07-16] MEDS ORDERED: Furosemide 10 MG/ML 4ML Vial IV ONE (08:15)
[2024-07-16] MEDS ORDERED: NS 250 ML IV PRN (10:45)
[2024-07-16] MEDS ORDERED: NS 500 ML IV ONE (11:35)
--- NOTE | 2024-07-16 11:57 | NUR ---
NOTIFIED OF BP 70/40'S. PT SITTING IN CHAIR DENIES BEING DIZZY OR LIGHTHEADED. DR. STERLING NOTIFIED. ORDERS FOR 500ML BOLUS AND DR. STERLING TO SEE PATIENT. ARM SWITCHED FOR BP CUFF AND BP 100'S/60'S. PT REMAINS ASYMPTOMATIC. ORDERS TO CONTINUE BOLUS AND ADMINISTER BLOOD PRODUCT ORDERED.
[2024-07-16 17:08] LABS: Bun/Creatinine Ratio 18.6 (12.0-20.0); Calcium, Blood 8.1 mg/dL (8.5-10.1); Creatinine, Blood 1.18 mg/dL (0.40-1.00); Potassium, Blood 3.8 mmol/L (3.5-5.5)
[2024-07-16 17:10] LABS: Hematocrit 26.6 % (33.0-51.0); Hemoglobin 8.1 g/dL (11.5-16.0)
--- NOTE | 2024-07-16 17:20 | NUR ---
SHIFT SUMMARY POD 2 R FEMUR ORIF PT UP IN CHAIR DURING MOST OF SHIFT. 1 UNIT PRBC GIVEN. PT CONTINUES TO DENY SOB. ON ROOM AIR SINCE 1400. SATS 88-92%, PT HAS HX OF COPD. DRESSING TO R LEG REMAINS CDI. CHEO WRAP INTACT. INCREASE IN PAIN WITH MOVEMENT BUT SUBSIDES ONCE SHE IS AT REST. MARBELLA DRESSING CDI. GREEN LIGHT FLASHING.
[2024-07-17 04:30] VITALS: BP 123/67
[2024-07-17 05:03] LABS: Hematocrit 26.1 % (33.0-51.0); Hemoglobin 8.2 g/dL (11.5-16.0); Mean Corpuscular HGB 25.6 pg (26.0-34.0); Mean Corpuscular HGB Conc 31.4 g/dL (31.5-36.5); Mean Corpuscular Volume 82 fL (80-100); Mean Platelet Volume 10.2 fL (9.1-12.4); NRBC ABSOLUTE 0.02 K/mm3 (0.00-0.02); NRBC Auto 0.2 /100 WBC (0.0-0.2); Platelet Count 263 K/mm3 (150-400); RDW Coefficient Variation 16.5 % (11.7-14.2); RDW Standard Deviation 48.6 fL (35.1-46.3); White Blood Cell Count 10.49 K/mm3 (4.00-11.30)
--- NOTE | 2024-07-17 05:23 | NUR ---
SHIFT SUMMARY NOC PT A/O X 4. PLEASANT AND COOPERATIVE WITH CARE. VSS. HS CBG 132. PT POST OP DAY 3 ORIF AND HAS MARBELLA WITH CHEO WRAP IN PLACE. PT PAIN BEING MANAGED PER EMAR. PT ON CPAP FOR SLEEP AND REQUIRING 4L O2 BLEED IN TO MAINTAIN SPO2 >90%. PT ON TELE SINUS/PVC'S IN 80'S. PT RECEIVED 1 UNIT PRBC YESTERDAY FOR HGB 8.2 TODAY. PT CURRENTLY RESTING WITH BED IN LOWEST POSITION, AND CALL LIGHT WITHIN REACH.
[2024-07-17 05:30] LABS: Bun/Creatinine Ratio 23.2 (12.0-20.0); Calcium, Blood 8.2 mg/dL (8.5-10.1); Creatinine, Blood 0.99 mg/dL (0.40-1.00); Magnesium, Blood 2.3 mg/dL (1.6-2.4); Phosphorus, Blood 3.8 mg/dL (2.5-4.9); Potassium, Blood 3.8 mmol/L (3.5-5.5)
[2024-07-17 07:17] VITALS: BP 115/62
[2024-07-17 11:44] VITALS: BP 96/45
[2024-07-17 15:40] VITALS: BP 96/45
--- NOTE | 2024-07-17 15:51 | NUR ---
End of shift Pt presently sitting up in chair. Pt on continuous pulse oximetry with Stable spo2. Denies complaints.
[2024-07-17 19:39] VITALS: BP 110/48
[2024-07-18 02:43] VITALS: BP 113/56
--- NOTE | 2024-07-18 05:49 | NUR ---
SHIFT SUMMARY PT S/P RIGHT ORIF. PT HAS RESTED T/O THE SHIFT. PAIN MANAGED WITH MEDS PER EMAR. DRESSING INTACT AND MARBELLA COMPRESSED. VITALS STABLE. PLAN OF CARE REMAINS UNCHANGED. BED IN LOWEST POSITION, CALL LIGHT WITHIN REACH.
[2024-07-18 07:10] VITALS: BP 129/63
[2024-07-18] MEDS ORDERED: ASPI81CH PO (11:41)
[2024-07-18] MEDS ORDERED: OXAYDO5 M2 PO (11:43)
[2024-07-18] MEDS ORDERED: ENOX30I (11:43)
--- NOTE | 2024-07-18 14:01 | NUR ---
DISCHARGE REPORT TO [facility] PACKED UP BELONGINGS AND PATIENT LEAVES VIA TRANSPORT.
== END 2024-07-18 12:02 | DRG 480 ==
LOC: ER 14:44 → ERHOLD 19:11 → SURS 19:11 → MEDS 19:11 → SURS 07-14 19:27
PROVIDERS: Hospitalist; Orthopaedic Surgery; Student in an Organized Health Care Education/Training Program; ADMIT Internal Medicine
PROC: 0QSB04Z Reposition Right Lower Femur with Internal Fixation Device, Open Approach (ICD-10-PCS; principal; 2024-07-14 07:00)
PROC: 30233N1 Transfusion of Nonautologous Red Blood Cells into Peripheral Vein, Percutaneous Approach (ICD-10-PCS; 2024-07-16)
DX: S72.101A Unspecified trochanteric fracture of right femur, initial encounter for closed fracture (principal); I50.33 Acute on chronic diastolic (congestive) heart failure; J96.01 Acute respiratory failure with hypoxia; D62 Acute posthemorrhagic anemia; I13.0 Hypertensive heart and chronic kidney disease with heart failure and stage 1 through stage 4 chronic kidney disease, or unspecified chronic kidney disease; M97.01XA Periprosthetic fracture around internal prosthetic right hip joint, initial encounter; I50.32 Chronic diastolic (congestive) heart failure; S72.301A Unspecified fracture of shaft of right femur, initial encounter for closed fracture; W18.30XA Fall on same level, unspecified, initial encounter; G47.33 Obstructive sleep apnea (adult) (pediatric); Z86.73 Personal history of transient ischemic attack (TIA), and cerebral infarction without residual deficits; D63.1 Anemia in chronic kidney disease; N18.1 Chronic kidney disease, stage 1; K44.9 Diaphragmatic hernia without obstruction or gangrene; F32.A Depression, unspecified; E11.51 Type 2 diabetes mellitus with diabetic peripheral angiopathy without gangrene; F17.210 Nicotine dependence, cigarettes, uncomplicated; E11.22 Type 2 diabetes mellitus with diabetic chronic kidney disease; E78.5 Hyperlipidemia, unspecified; E03.9 Hypothyroidism, unspecified; Z79.82 Long term (current) use of aspirin; Z79.890 Hormone replacement therapy; Z79.899 Other long term (current) drug therapy; Z88.0 Allergy status to penicillin; Z91.048 Other nonmedicinal substance allergy status; I95.9 Hypotension, unspecified; Z98.890 Other specified postprocedural states; Z90.49 Acquired absence of other specified parts of digestive tract; Z90.89 Acquired absence of other organs
CPT/HCPCS: 29505; 36415; 36430; 71045; 72170; 73030; 73552; 73560-RT; 73700; 80048; 80053; 82947; 83735; 83880; 84100; 85014; 85018; 85025; 85027; 86850; 86900; 86901; 86923; 94660; 94762; 96361; 96374; 97110; 97112; 97161; 97166; 97530; 97535; 99285-25; A9270; C1713; J0690; J1100; J1171; J1650; J1940; J2250; J2270; J2371; J2405; J2704; J3010; J7030; J7040; J7120; P9016

== ENCOUNTER 2025-01-23 15:10 | Emergency (ER) | payer MEDICARE, OTHER ==
[~2025-01-23] VITALS: Ht 162.6 cm; Wt 97.5 kg
[~2025-01-23 15:10] MED LIST changes: +ASPI81CH PO; +ENOX30I; +LEVSOD150 PO; +OXAYDO5 M2 PO; +PANT40 PO
[2025-01-23] MEDS ORDERED: NS 1,000 ML IV SCH (15:40)
[2025-01-23 17:24] LABS: BASOPHILS ABSOLUTE AUTO 0.12 K/mm3 (0.00-0.23); BASOPHILS PERCENT AUTO 1 % (0-2); EOSINOPHILS ABSOLUTE AUTO 0.47 K/mm3 (0.00-0.68); EOSINOPHILS PERCENT AUTO 4 % (0-6); Hematocrit 38.6 % (33.0-51.0); Hemoglobin 12.4 g/dL (11.5-16.0); IMMATURE GRAN ABSOLUTE AUTO 0.04 K/mm3 (0.00-0.10); IMMATURE GRAN PERCENT AUTO 0 % (0-1); LYMPHOCYTES ABSOLUTE AUTO 1.81 K/mm3 (0.84-5.20); LYMPHOCYTES PERCENT AUTO 17 % (21-46); MONOCYTES ABSOLUTE AUTO 0.75 K/mm3 (0.16-1.47); MONOCYTES PERCENT AUTO 7 % (4-13); Mean Corpuscular HGB Conc 32.1 g/dL (31.5-36.5); Mean Corpuscular Volume 87 fL (80-100); NEUTROPHILS ABSOLUTE AUTO 7.38 K/mm3 (1.96-9.15); NEUTROPHILS PERCENT AUTO 70 % (41-73); NRBC ABSOLUTE 0.00 K/mm3 (0.00-0.02); NRBC Auto 0.0 /100 WBC (0.0-0.2); Platelet Count 262 K/mm3 (150-400); RDW Coefficient Variation 18.5 % (11.7-14.2); RDW Standard Deviation 58.5 fL (35.1-46.3)
[2025-01-23 17:47] LABS: Alanine Aminotransfer (ALT/SGP 15.0 U/L (12-78); Albumin, Blood 3.3 g/dL (3.4-5.0); Albumin/Globulin Ratio 0.8 (0.8-1.8); Anion Gap 8.0 mmol/L (3-11); Aspartate Aminotrans (AST/SGOT 17.0 U/L (12-37); Bilirubin, Total 0.7 mg/dL (0.1-1.0); Blood Urea Nitrogen 15.0 mg/dL (8-24); CO2, Blood 26.0 mmol/L (21-32); Calcium, Blood 8.2 mg/dL (8.5-10.1); Chloride, Blood 110.0 mmol/L (98-108); Creatinine, Blood 0.84 mg/dL (0.40-1.00); Globulin, Blood 3.9 g/dL (2.2-4.0); Glucose, Blood 89.0 mg/dL (70-99); Potassium, Blood 3.7 mmol/L (3.5-5.5); Sodium, Blood 140.0 mmol/L (136-145); Total Protein, Blood 7.2 g/dL (6.4-8.2)
[2025-01-23] MEDS ORDERED: HYDCHL25 PO (18:36)
[2025-01-23] MEDS ORDERED: Morphine Sulfate 4 MG/1 ML Injection ONE (21:50)
[2025-01-23] MEDS ORDERED: Morphine Sulfate 4 MG/1 ML Injection IV ONE (21:55)
[2025-01-23] MEDS ORDERED: FentaNYL Citrate 50 MCG/ML 2 ML Injection ONE (21:59)
[2025-01-23 22:00] VITALS: BP 176/85
[2025-01-23] MEDS ORDERED: FentaNYL Citrate 50 MCG/ML 2 ML Injection IV ONE ×2 (22:00→22:05)
== END 2025-01-23 22:16 | disposition short-term general hospital (02) ==
LOC: ER 15:10
PROVIDERS: Student in an Organized Health Care Education/Training Program
DX: S72.351A Displaced comminuted fracture of shaft of right femur, initial encounter for closed fracture (principal); E11.9 Type 2 diabetes mellitus without complications; Z86.73 Personal history of transient ischemic attack (TIA), and cerebral infarction without residual deficits; Z96.651 Presence of right artificial knee joint; Z96.641 Presence of right artificial hip joint; Z87.81 Personal history of (healed) traumatic fracture; Z88.0 Allergy status to penicillin; Z91.040 Latex allergy status; Z79.890 Hormone replacement therapy; Z79.82 Long term (current) use of aspirin; Z79.02 Long term (current) use of antithrombotics/antiplatelets; Z79.899 Other long term (current) drug therapy; X58.XXXA Exposure to other specified factors, initial encounter
CPT/HCPCS: 29505; 73502; 73562-RT; 80053; 85025; 86850; 86900; 86901; 96374-59; 96375-59; 99285-25; A6590; J2270; J3010; J7030